=== PATIENT | female | born 1930 | race Caucasian/White ===

== ENCOUNTER 2019-10-11 09:39 | Outpatient (CLI) | payer MEDICARE | END 2019-10-11 23:59 | disposition home or self-care (01) | LOC: PETCFH 09:39 | PROVIDERS: ATTEND Internal Medicine Hematology & Oncology | DX: C76.0 Malignant neoplasm of head, face and neck (principal); C49.3 Malignant neoplasm of connective and soft tissue of thorax; C49.4 Malignant neoplasm of connective and soft tissue of abdomen; C49.5 Malignant neoplasm of connective and soft tissue of pelvis; C49.9 Malignant neoplasm of connective and soft tissue, unspecified; R22.41 Localized swelling, mass and lump, right lower limb; R22.32 Localized swelling, mass and lump, left upper limb; M48.8X6 Other specified spondylopathies, lumbar region | CPT/HCPCS: 78815; A9552 ==